=== PATIENT | male | born 1960 | race African-American/Black ===

== ENCOUNTER 2016-08-07 07:46 | Emergency (ER) | payer MEDICAID ==
[~2016-08-07] VITALS: Ht 188 cm; Wt 118.0 kg
[2016-08-07 08:02] VITALS: BP 136/92
[2016-08-07] MEDS ORDERED: PERMETHRIN 5% CREAM 60GM TOP ONE (08:45)
== END 2016-08-07 09:30 | disposition home or self-care (01) ==
LOC: ER 08:20
DX: B88.8 Other specified infestations (principal); J45.909 Unspecified asthma, uncomplicated; F17.200 Nicotine dependence, unspecified, uncomplicated; F12.10 Cannabis abuse, uncomplicated; J93.9 Pneumothorax, unspecified; Z98.890 Other specified postprocedural states; Z86.718 Personal history of other venous thrombosis and embolism
CPT/HCPCS: 99282

== ENCOUNTER 2016-12-03 11:02 | Inpatient (IN) | payer MEDICAID, MEDICARE ==
[~2016-12-03] VITALS: Ht 188 cm; Wt 128.4 kg
[2016-12-03] MEDS ORDERED: SODIUM CHLORIDE 0.9% 10ML VIAL ONE (13:40)
[2016-12-03] MEDS ORDERED: IOHEXOL-350 100 ML BOTTLE ONE (13:40)
[2016-12-03] MEDS ORDERED: ASPIRIN 81MG TABLET PO STA (13:48)
[2016-12-03] MEDS ORDERED: ONDANSETRON HCL 4MG/2ML VIAL IV STA (13:48)
[2016-12-03] MEDS ORDERED: MORPHINE SULFATE 4 MG/ML CPJ (NOT FOR IM USE) IV STA (13:48)
[2016-12-03] MEDS ORDERED: NITROGLYCERIN 0.4MG TABLET SL SL PRN (14:00)
[2016-12-03] MEDS ORDERED: VANCOMYCIN 1 G PREMIX 200 ML IV SCH (14:00)
[2016-12-03] MEDS ORDERED: CEFTRIAXONE 1 G PREMIX 50 ML IV ONE (14:30)
[2016-12-03 14:35] LABS: BASOPHILS % 0.6 % (0.0-2.0); HEMATOCRIT. 24.6 % (42.0-52.0); HEMOGLOBIN. 7.5 g/dL (14.0-18.0); MEAN CORPUSCULAR HEMOGLOBIN 17.9 pg (28.0-32.0); MEAN CORPUSCULAR VOLUME 58.7 fL (80.0-94.0); MONOCYTES % 9.9 % (2.0-8.0); NEUTROPHILS % 80.5 % (40.0-76.0); PLATELET 267 x1000/uL (130-400); RED BLOOD CELL COUNT 4.19 mill/uL (4.7-6.1); RED CELL DISTRIBUTION WIDTH 18.8 % (11.6-14.6)
[2016-12-03 14:39] LABS: CHLORIDE 103 mEq/L (98-107)
[2016-12-03 14:40] LABS: CARBON DIOXIDE 26 mEq/L (21-32)
[2016-12-03 14:48] LABS: TROPONIN I < 0.02 ng/mL (0.00-0.04)
[2016-12-03 14:49] LABS: D-DIMER 1.52 mg/L FEU (<0.50); INR 1.1; PARTIAL THROMBOPLASTIN TIME 30.8 sec (23.4-31.0); PROTHROMBIN TIME 11.3 sec (9.4-11.6)
[2016-12-03] MEDS ORDERED: ACETAMINOPHEN 325MG TABLET PO PRN (16:00)
[2016-12-03] MEDS ORDERED: MORPHINE SULFATE 4 MG/ML CPJ (NOT FOR IM USE) IV PRN (16:00)
[2016-12-03] MEDS ORDERED: MAGNESIUM/ALUMINUM HYDROXIDE/SIMETHICONE 30ML UDC PO PRN (16:00)
[2016-12-03] MEDS ORDERED: DOCUSATE SODIUM 100MG CAPSULE PO PRN (16:00)
[2016-12-03] MEDS ORDERED: CLONIDINE 0.1MG TABLET PO PRN (16:00)
[2016-12-03] MEDS ORDERED: ONDANSETRON HCL 4MG/2ML VIAL IV PRN (16:00)
[2016-12-03] MEDS ORDERED: IPRATROPIUM/ALBUTEROL 0.5-3(2.5)MG/3ML NEB INH PRN (16:00)
[2016-12-03 17:42] LABS: PLATELET ESTIMATE NORMAL
[2016-12-03] MEDS: ENOXAPARIN 30MG/0.3ML SYR SUBCUT SCH (20:36)
[2016-12-03 22:30] VITALS: BP 137/72
[2016-12-04] VITALS (21 sets, daily range): BP systolic 104–149; BP diastolic 32–80
[2016-12-04 00:46] LABS: CREATINE KINASE 153 IU/L (39-308); CREATINE KINASE MB FRACTION 2.2 ng/mL (0.5-3.6); TROPONIN I < 0.02 ng/mL (0.00-0.04)
[2016-12-04 07:03] LABS: CREATINE KINASE 129 IU/L (39-308); CREATINE KINASE MB FRACTION 1.7 ng/mL (0.5-3.6); TROPONIN I < 0.02 ng/mL (0.00-0.04)
[2016-12-04 07:06] LABS: HEMOGLOBIN 7.5 g/dL (14.0-18.0); MEAN CORPUSCULAR HEMOGLOBIN 17.9 pg (28.0-32.0); MEAN CORPUSCULAR VOLUME 59.2 fL (80.0-94.0); PLATELET 305 x1000/uL (130-400); RED BLOOD CELL COUNT 4.22 mill/uL (4.7-6.1); RED CELL DISTRIBUTION WIDTH 19.4 % (11.6-14.6)
[2016-12-04 07:14] LABS: CARBON DIOXIDE 25 mEq/L (21-32); CHLORIDE 104 mEq/L (98-107)
[2016-12-04 07:53] LABS: HDL CHOLESTEROL 12 mg/dL (40-59); LDL CHOLESTEROL 84 mg/dL (5-100); T4 FREE 1.12 ng/dL (0.76-1.46)
[2016-12-04] MEDS: AMLODIPINE 10MG TABLET PO SCH (08:30)
[2016-12-04] MEDS: HYDROCODONE/ACETAMINOPHEN 5/325MG TABLET PO PRN ×2 (08:30→21:18)
[2016-12-04] MEDS ORDERED: PNEUMOCOCCAL 23-VAL P-SAC VAC 0.5 ML IM ONE (09:00)
[2016-12-04] MEDS: ASPIRIN 81MG EC TABLET PO SCH (13:05)
[2016-12-04] MEDS: ENOXAPARIN 30MG/0.3ML SYR SUBCUT SCH ×2 (13:05→21:12)
[2016-12-04] MEDS: LEVOFLOXACIN 750MG PREMIX 150 ML IV SCH (15:35)
[2016-12-04] MEDS: PANTOPRAZOLE SODIUM 40 MG/VIAL IV SCH (15:42)
[2016-12-05] VITALS (10 sets, daily range): BP systolic 107–135; BP diastolic 66–101
[2016-12-05] MEDS: PANTOPRAZOLE SODIUM 40 MG/VIAL IV SCH (09:02)
[2016-12-05] MEDS: AMLODIPINE 10MG TABLET PO SCH (09:02)
[2016-12-05] MEDS: ASPIRIN 81MG EC TABLET PO SCH (09:03)
[2016-12-05] MEDS: ENOXAPARIN 30MG/0.3ML SYR SUBCUT SCH (09:03)
[2016-12-05] MEDS: HYDROCODONE/ACETAMINOPHEN 5/325MG TABLET PO PRN ×2 (09:07→21:32)
[2016-12-05] MEDS: LEVOFLOXACIN 750MG PREMIX 150 ML IV SCH (11:55)
[2016-12-05 12:42] LABS: HEMATOCRIT. 26.8 % (42.0-52.0); MEAN CORPUSCULAR HEMOGLOBIN 18.2 pg (28.0-32.0); MEAN CORPUSCULAR VOLUME 60.5 fL (80.0-94.0); PLATELET 351 x1000/uL (130-400); RED BLOOD CELL COUNT 4.43 mill/uL (4.7-6.1); RED CELL DISTRIBUTION WIDTH 20.5 % (11.6-14.6)
[2016-12-05 13:08] LABS: CARBON DIOXIDE 27 mEq/L (21-32); CHLORIDE 103 mEq/L (98-107)
[2016-12-05 13:28] LABS: TOTAL IRON BINDING CAPACITY 310 ug/dL (250-450)
[2016-12-05] MEDS: FERROUS SULFATE 325MG TABLET PO SCH (18:11)
[2016-12-05 19:50] LABS: NUCLEATED RED BLOOD CELLS 2 /100 WBC; PLATELET ESTIMATE NORMAL
[2016-12-05] MEDS: ASCORBIC ACID 500 MG TABLET PO SCH (21:28)
[2016-12-06] VITALS (7 sets, daily range): BP systolic 108–138; BP diastolic 66–81
[2016-12-06] MEDS: FERROUS SULFATE 325MG TABLET PO SCH ×3 (07:20→16:55)
[2016-12-06 07:51] LABS: HEMATOCRIT 26.7 % (42.0-52.0); HEMOGLOBIN 8.3 g/dL (14.0-18.0); MEAN CORPUSCULAR HEMOGLOBIN 18.8 pg (28.0-32.0); MEAN CORPUSCULAR VOLUME 60.7 fL (80.0-94.0); PLATELET 401 x1000/uL (130-400); RED BLOOD CELL COUNT 4.39 mill/uL (4.7-6.1)
[2016-12-06 07:56] LABS: PARTIAL THROMBOPLASTIN TIME 29.6 sec (23.4-31.0); PROTHROMBIN TIME 10.9 sec (9.4-11.6)
[2016-12-06] MEDS: ASCORBIC ACID 500 MG TABLET PO SCH (09:00)
[2016-12-06] MEDS: AMLODIPINE 10MG TABLET PO SCH (09:00)
[2016-12-06] MEDS: PANTOPRAZOLE SODIUM 40 MG/VIAL IV SCH (09:33)
[2016-12-06] MEDS: LEVOFLOXACIN 750MG PREMIX 150 ML IV SCH (12:01)
[2016-12-06] MEDS ORDERED: SIMETHICONE 40 MG/0.6 ML 30ML ONE ×2 (15:05→16:04)
[2016-12-06] MEDS ORDERED: FENTANYL CITRATE/PF 50MCG/ML 2ML VIAL ONE (15:05)
[2016-12-06] MEDS ORDERED: MIDAZOLAM HCL 5 MG/5 ML VIAL ONE (15:06)
[2016-12-06] MEDS ORDERED: FENTANYL CITRATE/PF 50MCG/ML 2ML VIAL IV PRN (15:15)
[2016-12-06] MEDS ORDERED: MIDAZOLAM HCL 5 MG/5 ML VIAL IV PRN (15:15)
[2016-12-06] MEDS ORDERED: SODIUM CHLORIDE 0.9% 10ML VIAL ONE (16:04)
[2016-12-06] MEDS ORDERED: ASPI-1159 PO (17:14)
== END 2016-12-06 18:25 | disposition home or self-care (01) | DRG 241 ==
LOC: ER 13:02 → 3WST 15:52 → EDBEDREQTM 15:54 → EDBEDREQ 15:54 → ENRESERV 21:37
PROVIDERS: ADMIT Internal Medicine; ATTEND Internal Medicine
PROC: 0DB58ZX Excision of Esophagus, Via Natural or Artificial Opening Endoscopic, Diagnostic (ICD-10-PCS; 2016-12-06)
PROC: 30233N1 Transfusion of Nonautologous Red Blood Cells into Peripheral Vein, Percutaneous Approach (ICD-10-PCS; 2016-12-06)
PROC: 0DB68ZX Excision of Stomach, Via Natural or Artificial Opening Endoscopic, Diagnostic (ICD-10-PCS; principal; 2016-12-06 12:00)
DX: K29.60 Other gastritis without bleeding (principal); E43 Unspecified severe protein-calorie malnutrition; B37.81 Candidal esophagitis; I11.9 Hypertensive heart disease without heart failure; D50.0 Iron deficiency anemia secondary to blood loss (chronic); F17.200 Nicotine dependence, unspecified, uncomplicated; K22.10 Ulcer of esophagus without bleeding; L03.115 Cellulitis of right lower limb; D64.9 Anemia, unspecified; K44.9 Diaphragmatic hernia without obstruction or gangrene; I25.10 Atherosclerotic heart disease of native coronary artery without angina pectoris; R60.0 Localized edema; J45.909 Unspecified asthma, uncomplicated; R19.5 Other fecal abnormalities; Z79.82 Long term (current) use of aspirin; I25.2 Old myocardial infarction; Z86.718 Personal history of other venous thrombosis and embolism
CPT/HCPCS: 36415; 36430; 71010; 71275; 73610; 73630; 80048; 80053; 80061; 82270; 82550; 82553; 82728; 83540; 83550; 83880; 84439; 84443; 84484; 85025; 85027; 85379; 85610; 85730; 86850; 86900; 86920; 87040; 88305; 88312; 88313; 90732; 93005; 93306; 93970; 96365; 96366; 96368; 96372; 96375; 97161; 99285; A4216; C9113; J0696; J1650; J1956; J2250; J2270; J2405; J3010; J3370; J7050; P9016; Q9967